=== PATIENT | female | born 1995 | race Two or more races ===

== ENCOUNTER 2021-02-11 13:14 | Emergency (ER) | payer SELFPAY ==
[2021-02-11 13:25] VITALS: BP 117/74; PULSE 74; TEMP 98.7; BMI 49.8
[2021-02-11] MEDS ORDERED: DIPHTH,PERTUSS(ACELL),TET 0.5 ML DISP.SYRIN IM ONE ×2 (13:51→13:57)
[2021-02-11] MEDS ORDERED: KETOROLAC TROMETHAMINE 30 MG/1 ML VIAL IM ONE (13:51)
[2021-02-11] MEDS ORDERED: KETOROLAC TROMETHAMINE 30 MG/1 ML VIAL ONE (13:57)
== END 2021-02-11 16:04 | disposition home or self-care (01) ==
LOC: JER 13:14
PROC: 0HQBXZZ Repair Right Upper Arm Skin, External Approach (ICD-10-PCS; principal; 2021-02-11)
PROC: 2W3KX1Z Immobilization of Left Finger using Splint (ICD-10-PCS; 2021-02-11)
PROC: 3E0233Z Introduction of Anti-inflammatory into Muscle, Percutaneous Approach (ICD-10-PCS; 2021-02-11)
DX: S51.011A Laceration without foreign body of right elbow, initial encounter (principal); S80.211A Abrasion, right knee, initial encounter; S62.617A Displaced fracture of proximal phalanx of left little finger, initial encounter for closed fracture
CPT/HCPCS: 73070-TC-RT-FY; 73130-TC-LT-FY; 73562-TC-RT-FY; 99285-25

== ENCOUNTER 2021-02-20 09:53 | Emergency (ER) | payer SELFPAY ==
[2021-02-20 09:58] VITALS: BP 143/85; PULSE 78; TEMP 98.6; BMI 47.2
== END 2021-02-20 10:15 | disposition home or self-care (01) ==
LOC: JER 09:53 → JERFT 09:53
DX: Z48.02 Encounter for removal of sutures (principal)
CPT/HCPCS: 99281-25

== ENCOUNTER 2021-05-13 13:10 | Emergency (ER) | payer SELFPAY ==
[2021-05-13 13:25] VITALS: BP 150/89; PULSE 84; TEMP 98.1; BMI 46.3
== END 2021-05-13 17:18 | disposition home or self-care (01) ==
LOC: JERFT 13:10
DX: R07.81 Pleurodynia (principal)
CPT/HCPCS: 71046-TC-FY; 71101-TC-RT-FY; 76604; 76705-TC; 93308; 99283-25

== ENCOUNTER 2023-03-19 07:15 | Emergency (ER) | payer SELFPAY ==
[2023-03-19 07:33] VITALS: BMI 46.3
[2023-03-19] MEDS ORDERED: SODIUM CHLORIDE 0.9% 500 ML INFUS.BAG IV ONE (07:39)
[2023-03-19] MEDS ORDERED: EPINEPHrine 1:1,000 1,000 MCG/ML ML IV ONE (07:40)
[2023-03-19] MEDS ORDERED: methylPREDNISolone NA SUCC 125 MG/2 ML VIAL IVPUSH ONE (07:40)
[2023-03-19] MEDS ORDERED: EPINEPHrine/PF 1 MG/1 ML (1:1,000) AMPULE ONE (07:42)
[2023-03-19] MEDS ORDERED: methylPREDNISolone NA SUCC 125 MG/2 ML VIAL ONE (07:43)
[2023-03-19 12:46] VITALS: BP 124/77; PULSE 70; RESP 18; TEMP 97.6
== END 2023-03-19 12:47 | disposition home or self-care (01) ==
LOC: JER 07:15
PROC: 3E033GC Introduction of Other Therapeutic Substance into Peripheral Vein, Percutaneous Approach (ICD-10-PCS; principal; 2023-03-19)
PROC: 3E033GC Introduction of Other Therapeutic Substance into Peripheral Vein, Percutaneous Approach (ICD-10-PCS; 2023-03-19)
PROC: 3E033GC Introduction of Other Therapeutic Substance into Peripheral Vein, Percutaneous Approach (ICD-10-PCS; 2023-03-19)
DX: R06.89 Other abnormalities of breathing (principal); K14.8 Other diseases of tongue; T78.1XXA Other adverse food reactions, not elsewhere classified, initial encounter; R49.9 Unspecified voice and resonance disorder; L50.9 Urticaria, unspecified; R07.89 Other chest pain; R07.0 Pain in throat; Z20.822 Contact with and (suspected) exposure to COVID-19
CPT/HCPCS: 0241U-QW; 93005; 93010; 99284-25